=== PATIENT | female | born 1950 | race Caucasian/White ===

== ENCOUNTER 2017-01-18 13:53 | Emergency (ER) | payer OTHER ==
[~2017-01-18] VITALS: Ht 167.6 cm; Wt 110.4 kg
[2017-01-18] MEDS ORDERED: NORCO 5/3251 TABLET PO (16:12)
[2017-01-18 16:22] VITALS: BP 128/66
== END 2017-01-18 16:23 | disposition home or self-care (01) ==
LOC: EME 13:53
DX: S42.212A Unspecified displaced fracture of surgical neck of left humerus, initial encounter for closed fracture (principal); W01.0XXA Fall on same level from slipping, tripping and stumbling without subsequent striking against object, initial encounter; E78.5 Hyperlipidemia, unspecified; I10 Essential (primary) hypertension; E11.9 Type 2 diabetes mellitus without complications; Z87.891 Personal history of nicotine dependence
CPT/HCPCS: 73030; 99281; 99284; J3010